=== PATIENT | male | born 1940 | race Caucasian/White ===

== ENCOUNTER 2017-12-14 21:46 | Emergency (ER) | payer MEDICARE, MEDICAID ==
[~2017-12-14] VITALS: Ht 180.3 cm; Wt 76.5 kg
[2017-12-14 21:52] VITALS: BP 129/87
[2017-12-14] MEDS ORDERED: TOBR5DRO2 EACHEYE (23:03)
== END 2017-12-14 23:11 | disposition home or self-care (01) ==
LOC: ER 21:48
DX: B99.9 Unspecified infectious disease (principal); H10.89 Other conjunctivitis; Z79.899 Other long term (current) drug therapy
CPT/HCPCS: 99283